=== PATIENT | female | born 1940 | race Caucasian/White ===

== ENCOUNTER 2017-05-11 14:12 | Outpatient (CLI) | payer MEDICARE | END 2017-05-11 14:13 | disposition home or self-care (01) | LOC: BICMRI 14:12 | PROVIDERS: ATTEND Neurological Surgery | DX: M54.16 Radiculopathy, lumbar region (principal); M48.061 Spinal stenosis, lumbar region without neurogenic claudication; M99.53 Intervertebral disc stenosis of neural canal of lumbar region | CPT/HCPCS: 72148 ==

== ENCOUNTER 2017-05-17 09:51 | Outpatient (CLI) | payer MEDICARE ==
--- NOTE | 2017-05-17 11:33 | RAD ---
PA AND LATERAL VIEWS CHEST: HISTORY: Preoperative evaluation. FINDINGS: The heart is enlarged. The lungs are well expanded without focal areas of consolidation, pneumothora x, andriy pulmonary edema, or pleural effusions. The aorta is tortuous. There are degenerative caceres es in the spine. Postop changes are noted in the cervical spine, with metallic hardware in place. IMPRESSION: Cardiomegaly. POS: OFF
== END 2017-05-17 09:52 | disposition home or self-care (01) ==
LOC: RAD-FRANK 09:51
PROVIDERS: ATTEND Internal Medicine
DX: Z01.818 Encounter for other preprocedural examination (principal); I51.7 Cardiomegaly
CPT/HCPCS: 71046

== ENCOUNTER 2017-06-21 06:45 | Day surgery (SDC) | payer MEDICARE ==
[2017-06-16 10:06] VITALS: BMI 31.2
--- NOTE | 2017-06-21 | HP ---
HISTORY OF PRESENT ILLNESS: Ms. Pierre is a very pleasant 77-year-old woman, who is known to us for previous cervical fusion, presents now with a protracted course of neurogenic claudication, these co ntinued for many years and has been evaluated by MRI from [facility], which shows a high-grade c ritical stenosis of the lumbar spine at both L2-L3 and at L4-L5. She preferred to move forward with surgical treatment if possible. PAST MEDICAL HISTORY: Significant for hypothyroidism, hypercholesterolemia, and hypertension. CURRENT MEDICATIONS: Lisinopril, amlodipine, hydrochlorothiazide, Synthroid, lovastatin, potassium, PreserVision, and daily vitamin. ALLERGIES: CODEINE. PHYSICAL EXAMINATION: NEUROLOGIC: The patient is alert and oriented x3. Gait is slow and antalgic as well as stooped in p osture. Lower extremity motor exam is normal as is the lower extremity sensory examination bilateral ly. ASSESSMENT: Lumbar spinal stenosis, neurogenic claudication. PLAN: Dr. Fajardo met with the patient, reviewed imaging, and advocated for 2-level decompression in t he lumbar spine at L2-L3 and L4-L5. He explained to the patient the risks, benefits, and alternative s to the procedure. The patient expressed understanding and would like to move forward with surgery as discussed. I do believe the patient is mentally competent and capable of making medical decisions for herself and we will move forward with surgery as planned. Huber Ludwig PA-C dictating for Dr. Fajardo.
[2017-06-21] MEDS ORDERED: CEFAZOLIN/Water 2 GM/20 ML SYRINGE ONE (07:32)
[2017-06-21] MEDS ORDERED: Bupivacaine HCl 0.5%/Epinephrine 1:200,000/PF 30 ml Vial ONE (09:45)
[2017-06-21] MEDS ORDERED: Thrombin 5000 UNITS/5 ML VIAL ONE (09:45)
[2017-06-21] MEDS ORDERED: Fentanyl 250 MCG/5 ML VIAL ONE (09:52)
[2017-06-21] MEDS ORDERED: Midazolam HCl 2 mg/2 ml Vial ONE (09:52)
[2017-06-21] MEDS ORDERED: Promethazine HCl 25 MG/ML VIAL SLOW IVP PRN (10:37)
[2017-06-21] MEDS ORDERED: PHENYLEPHRINE-NS 100 MCG/ML 10 ML SYRINGE ONE (10:54)
[2017-06-21] MEDS ORDERED: Ondansetron HCl/PF 4 MG/2 ML Vial ONE (10:54)
[2017-06-21] MEDS ORDERED: Dexamethasone 20 MG/5 ML VIAL ONE (10:54)
[2017-06-21] MEDS ORDERED: Lidocaine 1% PF 5 ML VIAL ONE (10:54)
[2017-06-21] MEDS ORDERED: Glycopyrrolate 0.2 MG/ML 5 ML SYRINGE ONE (10:54)
[2017-06-21] MEDS ORDERED: PROPOFOL 200 MG/20 ML VIAL ONE (10:54)
[2017-06-21] MEDS ORDERED: Promethazine HCl 25 MG/ML VIAL ONE (12:03)
[2017-06-21] MEDS ORDERED: Fentanyl 100 MCG/2 ML VIAL ONE ×2 (12:14→13:26)
--- NOTE | 2017-06-21 12:45 | OP ---
DATE OF PROCEDURE: 06/21/2017 SURGEON: Franki Fajardo M.D. BLISTER PACK OPERATOR: Erwin Ludwig PA-C. INDICATION: Pain and prevent neurologic decline. DIAGNOSES: Lumbar stenosis L2-3 and L4-5. PROCEDURE: L2-3 and L4-5 lumbar decompression. ANESTHESIA: General. TECHNIQUE: The patient was brought into the operating room and placed under general anesthesia. She was flipped from a supine or prone position on the operating room table. A linear incision was plan norma spanning L2-3 and L4-5. After prepping and draping and after an appropriate operative pause, the incision was created. The soft tissues were swept away from midline. Self-retaining retractors wer e placed in the wound for optimal exposure. After confirming the appropriate levels with C-arm fluor oscopy, an Adson rongeur was used to remove the spinous process of L2-3 and L4-5. High high-speed cu tting drill bits were then used to perform a laminectomy at L2-3 and L4-5. Laminectomies as well as medial facetectomies were completed using 2, 3 and 4 mm Kerrisons until the central canal and lateral recesses were adequately decompressed. The wound was then irrigated. Hemostasis was maintained thr oughout. The wound was then closed in anatomic layers and a pressure dressing was applied. There we re no known procedural complications.
[2017-06-21] MEDS ORDERED: Bisacodyl 10 MG SUPP PR PRN (12:57)
[2017-06-21] MEDS ORDERED: Acetaminophen 650 MG Suppository PR PRN (12:57)
[2017-06-21] MEDS ORDERED: tiZANidine HCl 4 MG TAB PO PRN (12:57)
[2017-06-21] MEDS ORDERED: Morphine 4 MG/ML Carpuject SLOW IVP PRN (12:57)
[2017-06-21] MEDS ORDERED: traMADol HCl 50 MG TAB PO PRN ×2 (12:57)
[2017-06-21] MEDS ORDERED: diphenhydrAMINE 25 MG CAP PO PRN (12:57)
[2017-06-21] MEDS ORDERED: Mag-Al 1200 mg/1200 mg/30 ML UDCUP PO PRN (12:57)
[2017-06-21] MEDS ORDERED: diphenhydrAMINE 50 MG/ML VIAL IVP PRN (12:57)
[2017-06-21] MEDS ORDERED: Ondansetron HCl/PF 4 MG/2 ML Vial IM PRN (12:59)
[2017-06-21] MEDS: Sodium Chloride 0.9% 1,000 ML IV SCH (14:18)
[2017-06-21] MEDS: CEFAZOLIN/Water 2 GM/20 ML SYRINGE SLOW IVP SCH (19:17)
[2017-06-22] MEDS: CEFAZOLIN/Water 2 GM/20 ML SYRINGE SLOW IVP SCH (03:14)
[2017-06-22] MEDS: Sodium Chloride 0.9% 1,000 ML IV SCH (04:11)
[2017-06-22] MEDS: Acetaminophen 325 MG TAB PO PRN ×2 (08:05→13:08)
[2017-06-22 12:05] VITALS: TEMP 97.8
[2017-06-22 13:28] VITALS: BP 134/79
== END 2017-06-22 13:34 | disposition home or self-care (01) ==
LOC: SDC 06:45 → SURG A 13:39 → SDC 06-22 13:34
PROVIDERS: ATTEND Neurological Surgery
PROC: 01NB0ZZ Release Lumbar Nerve, Open Approach (ICD-10-PCS; principal; 2017-06-21)
DX: M48.062 Spinal stenosis, lumbar region with neurogenic claudication (principal); E03.9 Hypothyroidism, unspecified; E78.00 Pure hypercholesterolemia, unspecified; I10 Essential (primary) hypertension; Z88.5 Allergy status to narcotic agent; Z79.899 Other long term (current) drug therapy; Z98.1 Arthrodesis status
CPT/HCPCS: 76001; 96374; J0670; J1100; J2001; J2250; J2405; J2550; J2704; J3010

== ENCOUNTER 2017-11-14 01:22 | Observation (INO) | payer MEDICARE ==
[2017-11-14 02:42] LABS: Bilirubin Negative (Negative); Blood, Urine Trace (Negative); Clarity CLEAR (Clear); Glucose, Urine (Dipstick) Negative (Negative); Leukocyte Trace (Negative); Nitrite Negative (Negative); Protein, Urine (Dipstick) Negative (Neg-Trace); Specific Gravity, Urine 1.008 (1.002-1.036); Urobilinogen 0.2 mg/dL (0.2-1.0); pH, Urine 7.5 (5.0-9.0)
[2017-11-14] MEDS ORDERED: Meclizine HCl 25 MG TAB ONE (02:42)
[2017-11-14 02:47] LABS: Bacteria/HPF None Seen HPF (None Seen); Hyaline Casts/LPF 0-3 HYALINE CAST LPF (0-3 Hyaline); Squamous Epithelial 0-3 HPF (0-3); WBC/HPF 0-3 HPF (0-3)
[2017-11-14 02:59] LABS: #Basophils 0.1 thou/uL (0.0-0.2); #Eosinphils 0.1 thou/uL (0.0-0.7); #Lymphocytes 1.5 thou/uL (1.20-3.40); #Monocytes 0.8 thou/uL (0.11-0.59); #Neutrophils 4.6 thou/uL (1.40-6.50); %Basophils 0.8 % (0.0-1.0); %Lymphocytes 21.7 % (21.0-51.0); %Monocytes 10.9 % (0.0-10.0); %Neutrophils 65.6 % (42.0-75.0); Hemoglobin 15.8 g/dL (12.0-16.0); Mean Corpuscular HGB CONC 33.8 g/dL (32.0-36.0); Mean Corpuscular Hemoglobin 30.3 pg (27.0-31.0); Mean Corpuscular Volume 89.6 fL (78.0-98.0); Mean Platelet Volume 9.6 fL (7.4-10.4); Platelet Count 118 thou/uL (130-400); RBC Distribution Width 13.3 % (11.5-14.5); White Blood Cell (WBC) Count 6.9 thou/uL (4.8-10.8)
[2017-11-14] MEDS ORDERED: Ondansetron HCl/PF 4 MG/2 ML Vial ONE (03:06)
[2017-11-14 03:32] LABS: CKMB 1.2 ng/mL (0-6.6); Troponin I Less than 0.010 ng/mL (< 0.028)
[2017-11-14 03:34] LABS: ALT (SGPT) 19 U/L (8-55); AST (SGOT) 40 U/L (5-34); Albumin 4.6 g/dL (3.4-4.8); Alkaline Phosphatase 117 U/L (40-150); Anion Gap 19 mmol/L (10-20); BUN (Urea Nitrogen) 13 mg/dL (9.8-20.1); Bilirubin, Total 0.6 mg/dL (0.2-1.2); CK (CPK) 45 U/L (29-168); Calc. Creatinine Clearance 0 mL/min (70-130); Calcium 9.9 mg/dL (7.8-10.44); Carbon Dioxide 21 mmol/L (23-31); Chloride 103 mmol/L (98-107); Estimated GFR-MDRD 85; Globulin 3.9 g/dL (2.4-3.5); Glucose 142 mg/dL (83-110); Potassium 4.8 mmol/L (3.5-5.1); Protein, Total 8.5 g/dL (6.0-8.3); Sodium 138 mmol/L (136-145)
[2017-11-14 05:55] LABS: Troponin I Less than 0.010 ng/mL (< 0.028)
[2017-11-14 07:41] VITALS: BMI 30.7
[2017-11-14] MEDS ORDERED: REFRESH PLUS (Carboxymethylcellulose 0.5%) Opth Drops EA EYE PRN (08:51)
[2017-11-14] MEDS ORDERED: Naproxen 500 MG TAB PO PRN (08:54)
[2017-11-14 08:59] LABS: Troponin I 0.012 ng/mL (< 0.028)
--- NOTE | 2017-11-14 09:18 | CT ---
PRELIMINARY REPORT/[facility]/EMERGENTY AFTER-HOURS PROCEDURE CT Head Without Intravenous Contrast CLINICAL HISTORY: 77 years old, female; Signs and symptoms; Dizziness; Patient HX: Er 12; Pt reports vomiting, dizzines s, losing balance, falling over. Onset today TECHNIQUE: Axial computed tomography images of the head/brain without intravenous contrast. COMPARISON: No relevant prior studies available. FINDINGS: Brain: Scattered areas of hypoattenuation, likely chronic small vessel ischemic change, demyelination , or gliosis. Ventricles: Normal. Bones/joints: Normal. No acute fracture. Soft tissues: Normal. Vasculature: Atherosclerotic vascular calcifications. Sinuses: Minimal ethmoid sinus mucosal thickening. Mastoid air cells: Normal as visualized. No mastoid effusion. IMPRESSION: 1. No acute findings. 2. Non-acute findings are described above. Thank you for allowing us to participate in the care of your patient. Dictated and Authenticated by: Valentin Wright MD 11/14/2017 3:02 AM Central Time ([place] & [place]) FINAL REPORT CT HEAD WITHOUT CONTRAST: No acute intracranial abnormality identified. I am in agreement with the preliminary report. POS: [facility]
--- NOTE | 2017-11-14 09:59 | RAD ---
PORTABLE CHEST: HISTORY: Syncope. FINDINGS: Lungs appear well aerated and clear. No infiltrate. Heart size mildly prominent. No evidence of va scular congestion or edema. No change from exam of 08/31/15. IMPRESSION: No acute finding. POS: [facility]
[2017-11-14] MEDS: Lisinopril 20 MG TAB PO SCH (10:11)
--- NOTE | 2017-11-14 14:17 | MRI ---
MRI BRAIN WITH AND WITHOUT CONTRAST: Multiplanar multisequential imaging of the brain obtained. INDICATION: Vomiting, dizziness, and imbalance. Assess for CVA. FINDINGS: The exam was significantly degraded due to motion artifact. Ventricles have normal size and position. No evidence of restricted diffusion identified. There is no evidence of mass or edema. Very mild ischemic white matter changes. No abnormal enhancement identified. The intracranial internal carotid arteries and proximal cerebral arteries show flow voids. The basil ar artery is patent. Dural venous sinuses appear patent. Paranasal sinuses and mastoids appear clear. IMPRESSION: Unremarkable MRI of brain. POS: [facility]
--- NOTE | 2017-11-14 14:29 | CON ---
DATE OF CONSULTATION: 11/14/2017 CONSULTING PHYSICIAN: Hospitalist Service. IMPRESSION: 1. Acute vertigo with nausea and vomiting. 2. Hypertension. PLAN: MRI of the brain to determine whether this was an ischemic event. HISTORY OF PRESENT ILLNESS: Ms. Pierre is a 77-year-old white female with a past history of hyperte nsion. She was lying in bed, reading a book, when she suddenly had an acute sensation of movement. She jerked her body to the left side in response to this and became acutely dizzy. This resulted in some secondary nausea. She got her to help her up and she vomited. She had difficulty walki ng. As the symptoms persisted, she threw up again a bit later. The symptom seemed to subside within about an hour. They returned upon in a postural change from lying down to sitting up. She came int o the emergency room last night. She had a CT of the brain done which was unremarkable. LABORATORY STUDIES: Including CBC, chemistry panel and urinalysis were all unremarkable. Vital signs have been stable and she has been afebrile. She is without any complaint of headache, do uble vision, slurred speech, difficulty swallowing, lateralized weakness or numbness. She has not salas d any further symptoms. This morning, she is able to walk to the bathroom independently. PAST MEDICAL HISTORY: Hypertension. ALLERGIES: CODEINE. SOCIAL HISTORY: No tobacco or alcohol use. FAMILY HISTORY: Noncontributory. REVIEW OF SYSTEMS: No chest pain, shortness of breath, lateralized weakness or numbness. PHYSICAL EXAMINATION: GENERAL: She is a well-nourished elderly lady in no distress. VITAL SIGNS: Blood pressure 144/77, pulse 91, respirations 16, temperature 98.8. HEENT: Pupils are equal. Conjunctivae clear. Oropharynx clear. No nystagmus noted. Hearing was d iminished in the right ear. NECK: Supple. EXTREMITIES: No cyanosis or edema. NEUROLOGIC: She is alert and appropriate. Her speech is fluent and clear. Exam is nonfocal. SUMMARY: This is an elderly lady with history of hypertension, acute onset of vertigo with nausea an d vomiting. It sounds fairly suspicious for cerebellar infarction. She seems to be doing better at this point. I would complete her stroke workup if it is confirmed by MRI. Aspirin and a statin woul d be appropriate if found to be positive.
[2017-11-14] MEDS ORDERED: Gadobenate Dimeglumine 529 MG/1 ML (20ML VIAL) ONE (14:35)
--- NOTE | 2017-11-14 16:26 | HP ---
DATE OF ADMISSION: 11/15/2007 CHIEF COMPLAINT: Dizziness and vertigo. HISTORY OF PRESENT ILLNESS: Ms. Pierre is a 77-year-old female with past medical history of hypertension, hypothyroidism, came with sudden onset of dizziness and vertigo. Patient's initial episode had when she has lying in the bed, felt dizzy. She was able to get up and walk and the dizzi ness went away, but she vomited twice in that time. When she got up second time, she felt room was s pinning and then she fell, did not lose consciousness. She had nausea, but no vomiting, no headache, no chest pain, no shortness of breath, no palpitations, so EMS was called. EMS found the patient wi th normal vital signs and normal blood glucose. She responds to the emergency room where she was deo cruzated, where she was given meclizine 1 tablet and also Zofran for nausea and started on IV fluid. T he patient currently feels better. No dizziness right now. PAST MEDICAL HISTORY: 1. Hypertension. 2. Hypothyroidism. 3. Hyperlipidemia. 4. Prediabetes. 5. Macular degeneration. PAST SURGICAL HISTORY: 1. Status post lumbar spine decompression. 2. Status post bilateral cataract surgery. CURRENT MEDICATIONS: Patient is on Synthroid 50 mcg daily, lovastatin 40 mg daily, lisinopril 40 mg daily, amlodipine 5 mg daily. ALLERGIES: CODEINE. FAMILY HISTORY: Nothing contributory. SOCIAL HISTORY: Patient lives with family. No history of smoking. No history of alcohol intake. REVIEW OF SYSTEMS: Cardiovascular: No chest pain. No shortness of breath. Respiratory: No fever or cough. Gastrointestinal: Has nausea and vomiting. No abdominal pain. CENTRAL NERVOUS SYSTEM: No headache, but feels dizzy. PHYSICAL EXAMINATION: GENERAL: The patient is alert, awake, oriented x3. VITAL SIGNS: Temperature 98, pulse 96, respiration 20, blood pressure 103/60. No orthostatic change s. HEENT: Head is normocephalic, atraumatic. Pupils equal and reactive to light. Nasopharynx is pale and dry. Hard and soft palate, no lesions. SKIN: Skin turgor decreased. NECK: Supple. No JVD. LUNGS: Bilateral air entry, no rales, no rhonchi. CARDIAC: S1, S2 regular. No murmurs. ABDOMEN: Soft, no distention, no tenderness. Normal bowel sounds present. RECTAL: Deferred. CENTRAL NERVOUS SYSTEM: The patient is alert, awake, oriented x3. Motor system power 5/5 in all ext remities. Deep tendon reflexes 2+ bilaterally. Plantar downgoing. Sensory intact. LABORATORY AND X-RAY FINDINGS: CBC shows WBC 6.9, hemoglobin 15, hematocrit 46, platelets 118. [place] bolic panel shows sodium 138, potassium 4.8, chloride 103, CO2 of 21, urea nitrogen 13, creatinine 0. 6, glucose 148. Urinalysis negative. EKG shows normal sinus rhythm, no acute ST-T changes seen. Ch est x-ray no acute findings. CT scan of the brain, no acute findings. ASSESSMENT: 1. Vertigo, acute. 2. Hypertension. 3. Hypothyroidism. 4. Hyperlipidemia. 5. Macular degeneration. 6. History of lumber spine decompression. PLAN: 1. Vital signs q.4 hours. 2. Activity: As tolerated. 3. Allergies: CODEINE, 4. Hep-Lock. 5. Diet: Cardiac. 6. Continue home medication. 7. MRI of the brain. 8. Neurology consult. 9. Meclizine 25 mg b.i.d.
[2017-11-14] MEDS ORDERED: Atorvastatin Calcium 10 MG TAB PO SCH (17:00)
[2017-11-14] MEDS ORDERED: Amlodipine 5 MG TAB PO SCH (21:00)
[2017-11-14] MEDS ORDERED: Vit A,C & E/Lutein/Minerals Tablet PO SCH (21:00)
[2017-11-15] MEDS ORDERED: Levothyroxine Sodium 50 MCG TAB PO SCH (06:00)
[2017-11-15 07:39] VITALS: TEMP 98.1
[2017-11-15] MEDS: Lisinopril 20 MG TAB PO SCH (09:13)
[2017-11-15 09:14] VITALS: BP 132/63
--- NOTE | 2017-11-18 13:36 | EKG ---
Test Reason : Blood Pressure : / mmHG Vent. Rate : 094 BPM Atrial Rate : 094 BPM P-R Int : 194 ms QRS Dur : 068 ms QT Int : 370 ms P-R-T Axes : 035 043 043 degrees QTc Int : 462 ms Normal sinus rhythm Possible Left atrial enlargement Borderline ECG Confirmed by VIOLETTA Fuentes, BRETT ([id number]), subeditor KEITH BONE ([id number]) on 11/18/2017 1:36:12 PM Referred By: Confirmed By:BRETT SHIPLEY M.D.
== END 2017-11-15 10:57 | disposition home or self-care (01) ==
LOC: ERS 01:22 → 2SE 06:03
PROVIDERS: ADMIT Internal Medicine; ATTEND Internal Medicine
DX: R42 Dizziness and giddiness (principal); I10 Essential (primary) hypertension; E03.9 Hypothyroidism, unspecified; E78.5 Hyperlipidemia, unspecified; Z79.899 Other long term (current) drug therapy; Z88.5 Allergy status to narcotic agent
CPT/HCPCS: 70450; 70553; 71045; 80053; 82550; 82553; 83880; 84484 ×2; 85025; 93005; 96361; 96374; 99285; G0378 ×2; 36415; 81003; 81015; A9579; J2405